=== PATIENT | female | born 1995 | race Caucasian/White ===

== ENCOUNTER 2018-11-13 02:33 | Emergency (ER) | payer OTHER ==
[~2018-11-13] VITALS: Ht 165.1 cm; Wt 63.6 kg
[2018-11-13 02:41] VITALS: TEMP 97.8
[2018-11-13] MEDS ORDERED: NORCO 325 MG-51 TAB PO (03:25)
[2018-11-13 03:45] VITALS: BP 103/80; PULSE 90
== END 2018-11-13 03:47 | disposition home or self-care (01) ==
LOC: COL.ER 02:33
DX: S62.306A Unspecified fracture of fifth metacarpal bone, right hand, initial encounter for closed fracture (principal); W22.8XXA Striking against or struck by other objects, initial encounter; Y92.410 Unspecified street and highway as the place of occurrence of the external cause
CPT/HCPCS: Q4021